=== PATIENT | female | born 1970 | race Caucasian/White ===

== ENCOUNTER 2024-05-02 18:54 | Observation (INO) | payer BC, SELFPAY ==
[2024-05-02] VITALS (10 sets, daily range): BP systolic 88–121; BP diastolic 42–71; PULSE 62–89; RESP 13–19; TEMP 36.7–37; O2SAT 83–100; BMI 27.2; BMI 26.9
--- NOTE | 2024-05-02 20:20 | HMH.EDGENADL ---
Discharge Plan Disposition Patient Disposition: Admitted Condition: Good Clinical Impressions Clinical Impression: Blood pressure alteration Discharge ED Provider: Julieta Abdul General Adult HPI General Chief complaint: Weakness Stated complaint: Feet and fingers numb,feels faint,LBP Time Seen by Provider: 05/02/24 19:42 Mode of Arrival: Wheelchair Source of Information: Patient Limitations: No Limitations Description of Symptoms (Recalled from ER Triage Doc. by RN): Pt states she has a known 3.9cm aortic aneurysm and her provider has been working on trying to control her BP. Pt believes the BP meds is to high of a dose, and it is causing her BP to bottom out. Normally her SBP is in the 180s. pt states she was + for the flu 2 weeks ago History of Present Illness HPI narrative: This patient is a 53-year-old female with a history of aortic aneurysm, hypertension presenting to the emergency department for evaluation with concern for low blood pressure, chest tightness, upper back tightness, tingling in her fingertips and feet that been going on for about 3 days. She states that she just does not feel right. She notes that she had the flu about a week and a half ago and felt she got dehydrated with this. She also had her bisoprolol that she takes for impulse control and HTN. She notes that her blood pressure previously had been running high. She states that she has not been feeling well at all and feels lightheaded when she goes to stand up. She cut her bisoprolol back already from 20 mg back down to 10, but she still is not feeling right. Related Data Home Medications ?Medication ?Instructions ?Recorded ?Confirmed buspirone 7.5 mg tablet 7.5 mg PO DAILY 05/02/24 05/02/24 doxepin 3 mg tablet 6 mg PO DAILY 05/02/24 05/02/24 nebivolol 20 mg tablet 20 mg PO DAILY 05/02/24 05/02/24 ubrogepant 100 mg tablet (Ubrelvy) See Rx Instructions .Route .COMPLEX 05/02/24 05/02/24 valsartan 320 mg tablet 320 mg PO DAILY 05/02/24 05/02/24 venlafaxine 225 mg tablet,extended 225 mg PO DAILY 05/02/24 05/02/24 release 24 hr Allergies Allergy/AdvReac Type Severity Reaction Status Date / Time codeine Allergy Intermediate Hives Verified 05/02/24 20:44 ofloxacin (From Floxin) AdvReac Mild Migraine Verified 05/02/24 20:44 [facility] Disclaimer: The information contained in this section may have been updated after the patient was seen, as this information can be updated by other users. Social History Smoking Status: Never smoker alcohol intake: never current occupational status: employed Travel in the last 8 weeks: None ROS Obtained: Yes All systems reviewed & no additional complaints except as documented Physical Exam General General appearance: alert and in no apparent distress Head Head exam: atraumatic and normocephalic Eye Eye exam: Present normal appearance, PERRL and EOMI ENT ENT exam: Present normal exam, normal oropharynx, mucous membranes moist and normal external ear exam Neck Neck exam: Present normal inspection, full ROM and trachea midline; Absent tenderness Chest Chest inspection: Present normal inspection and symmetric chest wall rise; Absent tenderness Respiratory Respiratory exam: Present normal lung sounds bilaterally; Absent respiratory distress, wheezes, stridor or accessory muscle use Cardiovascular Cardiovascular exam: Present regular rate and normal rhythm Abdominal Exam Abdominal exam: Present soft; Absent distention, tenderness or guarding Extremities Exam Extremities exam: Present normal inspection, full ROM and normal capillary refill; Absent tenderness or edema Back Exam Back exam: Present normal inspection and full ROM; Absent tenderness Neurological Exam Neurological exam: Present alert, oriented X3, CN II-XII intact and normal gait; Absent motor sensory deficit Psychiatric Psychiatric exam: Present normal affect and normal mood Skin Skin exam: Present warm and dry Medical Decision Making Medical Records Medical records reviewed: Yes I reviewed the patient's medical records. Screening: Per USPSTF and CDC recommendations, given the prevalence of disease in our region, it is our hospital?s policy to screen for HIV and viral Hepatitis for all patients aged 18 and over and those with ongoing risk factors. Terry Inquiry Pt receiving controlled substance: No Vital Signs: 05/02/24 19:01 05/02/24 19:23 05/02/24 19:30 Temperature 98.6 F Temperature Source Tympanic Pulse Rate 77 77 Pulse Rate [Orthostatic Lying] Pulse Rate [Orthostatic Sitting] Pulse Rate [Orthostatic Standing] Pulse Rate [Right] 79 Respiratory Rate 18 19 17 Blood Pressure 103/68 L 113/67 Blood Pressure [Orthostatic Lying Left Arm] Blood Pressure [Orthostatic Sitting] Blood Pressure [Orthostatic Standing] Blood Pressure [Right Arm] 107/42 L Blood Pressure Mean [Right Arm] 63 Blood Pressure Source [Right Arm] Manual Cuff/ Auscultation Blood Pressure Position Blood Pressure Position [Right Arm] Sitting 02 Sat by Pulse Oximetry 100 99 99 Oxygen Delivery Method Room Air 05/02/24 20:00 05/02/24 20:17 05/02/24 20:30 Temperature Temperature Source Pulse Rate 72 62 Pulse Rate [Orthostatic Lying] 68 Pulse Rate [Orthostatic Sitting] 76 Pulse Rate [Orthostatic Standing] 84 Pulse Rate [Right] Respiratory Rate 13 14 Blood Pressure 105/68 L 109/64 L Blood Pressure [Orthostatic Lying Left Arm] 94/55 L Blood Pressure [Orthostatic Sitting] 103/59 L Blood Pressure [Orthostatic Standing] 88/64 L Blood Pressure [Right Arm] Blood Pressure Mean [Right Arm] Blood Pressure Source [Right Arm] Blood Pressure Position Blood Pressure Position [Right Arm] 02 Sat by Pulse Oximetry 100 83 L Oxygen Delivery Method 05/02/24 20:37 05/02/24 21:31 05/02/24 21:31 Temperature Temperature Source Pulse Rate 69 67 Pulse Rate [Orthostatic Lying] Pulse Rate [Orthostatic Sitting] Pulse Rate [Orthostatic Standing] Pulse Rate [Right] Respiratory Rate 15 14 13 Blood Pressure 103/59 L 111/49 L 111/49 L Blood Pressure [Orthostatic Lying Left Arm] Blood Pressure [Orthostatic Sitting] Blood Pressure [Orthostatic Standing] Blood Pressure [Right Arm] Blood Pressure Mean [Right Arm] Blood Pressure Source [Right Arm] Blood Pressure Position Blood Pressure Position [Right Arm] 02 Sat by Pulse Oximetry 92 L 99 Oxygen Delivery Method Room Air 05/02/24 22:14 05/02/24 22:15 Temperature 98.0 F 98.1 F Temperature Source Oral Pulse Rate 89 Pulse Rate [Orthostatic Lying] Pulse Rate [Orthostatic Sitting] Pulse Rate [Orthostatic Standing] Pulse Rate [Right] 83 Respiratory Rate 16 14 Blood Pressure 113/68 Blood Pressure [Orthostatic Lying Left Arm] Blood Pressure [Orthostatic Sitting] Blood Pressure [Orthostatic Standing] Blood Pressure [Right Arm] 121/71 Blood Pressure Mean [Right Arm] 87 Blood Pressure Source [Right Arm] Automatic Cuff Blood Pressure Position Sitting Blood Pressure Position [Right Arm] 02 Sat by Pulse Oximetry 98 Oxygen Delivery Method Room Air Room Air Lab Data Lab results reviewed: Yes I reviewed the patient's lab results. Lab Results 05/02/24 19:24: WBC 15.8 H, RBC 5.40, Hgb 15.9, Hct 48.1 H, MCV 89.1, MCH 29.4, MCHC 33.1, RDW 15.5, Plt Count 420, MPV 10.7 H, Neut % (Auto) 64.7, Lymph % (Auto) 24.7, [place] % (Auto) 9.1, Eos % (Auto) 0.6, Baso % (Auto) 0.5, Neut # (Auto) 10.2 H, Lymph # (Auto) 3.9, [place] # (Auto) 1.4 H, Eos # (Auto) 0.1, Baso # (Auto) 0.1, Total Counted 100, Neutrophils % (Manual) 61, Lymphocytes % (Manual) 34, Monocytes % (Manual) 3, Basophils % (Manual) 2.0 H, Platelet Estimate Normal, RBC Morphology Normal, Sodium 135 L, Potassium 3.6, Chloride 103, Carbon Dioxide 26, Anion Gap 9.6, BUN 26 H, Creatinine 0.80, Estimated Creat Clear 109, Estimated GFR 75, Est GFR ( Amer) 90, Glucose 103 H, Calcium 8.6, Phosphorus 3.4, Magnesium 1.8, Total Bilirubin 0.4, AST 38 H, ALT 27, Alkaline Phosphatase 70, Troponin I < 0.01, Total Protein 5.9 L, Albumin 3.5, Globulin 2.4, Albumin/Globulin Ratio 1.5 05/02/24 19:24 05/02/24 19:24 Orders (Tests/Meds): ED MEDICATIONS Generic Name Dose Route Start Last Admin Trade Name Freq PRN Reason Stop Dose Admin Acetaminophen 650 mg 05/02/24 22:09 Acetaminophen 325mg Tab PO 06/01/24 22:08 Q4HP PRN Fever or Mild Pain (1-3) Lactated Ringer's 1,000 mls @ 50 mls/hr 05/02/24 22:15 05/02/24 22:57 Lactated Ringer's 1000 Ml Bag IV 06/01/24 22:14 50 mls/hr .Q20H ZOE Administration Ondansetron HCl 4 mg 05/02/24 22:09 Ondansetron 4mg/2ml Vial IV 06/01/24 22:08 Q8HP PRN Nausea Discontinued Medications Generic Name Dose Route Start Last Admin Trade Name Freq PRN Reason Stop Dose Admin Lactated Ringer's 1,000 mls @ 999 mls/hr 05/02/24 20:24 05/02/24 20:47 Lactated Ringer's 1000 Ml Bag IV 05/02/24 21:24 999 mls/hr .Q1H1M ONE Administration Iopamidol 70 ml 05/02/24 20:55 05/02/24 20:56 Iopamidol-370 (76%);100ml Bottle IV 05/02/24 20:56 70 ml ONCE ONE Administration Sodium Chloride 50 ml 05/02/24 20:55 05/02/24 20:56 0.9 % Sodium Chloride 50 Ml Vial IV 05/02/24 20:56 50 ml ONCE ONE Administration Sodium Chloride 10 ml 05/02/24 20:55 05/02/24 20:56 Sodium Chloride 0.9% 10ml Syr (Rad Only) IV 05/02/24 20:56 10 ml ONCE ONE Administration ORDERS Category Date Time Status CT angio chest - dissection Stat Cat Scan 05/02/24 20:22 Completed Basic Metabolic Panel [facility] Lab 05/03/24 06:00 Ordered Basic Metabolic Panel AMLAB Lab 05/04/24 06:00 Ordered Basic Metabolic Panel [facility] Lab 05/05/24 06:00 Ordered Basic Metabolic Panel AMLAB Lab 05/06/24 06:00 Ordered Basic Metabolic Panel AMLAB Lab 05/07/24 06:00 Ordered CBC w/Auto Diff [Complete Blood Count Auto Diff] Stat Lab 05/02/24 19:24 Completed CMP [Comprehensive Metabolic Panel] Stat Lab 05/02/24 19:24 Completed Complete Blood Count Auto Diff AML[facility] Lab 05/03/24 06:00 Ordered Complete Blood Count Auto Diff AMLAB Lab 05/04/24 06:00 Ordered Complete Blood Count Auto Diff AMLAB Lab 05/05/24 06:00 Ordered Complete Blood Count Auto Diff AMLAB Lab 05/06/24 06:00 Ordered Complete Blood Count Auto Diff AMLAB Lab 05/07/24 06:00 Ordered MAG [Magnesium] Stat Lab 05/02/24 19:24 Completed Magnesium AMLAB Lab 05/03/24 06:00 Ordered PHOS [Phosphorous] Stat Lab 05/02/24 19:24 Completed TSH [Thyroid Stimulating Hormone] AMLAB Lab 05/03/24 06:00 Ordered TSH [Thyroid Stimulating Hormone] Stat Lab 05/02/24 22:41 Completed Trop I [Troponin I] Stat Lab 05/02/24 19:24 Completed Troponin I Q3H Lab 05/02/24 22:41 Completed Troponin I Q3H Lab 05/03/24 02:30 Ordered Vitamin B12 Routine Lab 05/03/24 04:00 Ordered ECG Data Tracing #1: I reviewed this ECG and interpreted as documented below: Sinus rhythm with frequent PVCs. Significant ST changes without acute STEMI. No prior EKG for comparison. ECG initial impression date: 05/02/24 ECG initial impression time: 20:44 Medical Decision Narrative: In summary, this patient is a 53-year-old female presenting to the Emergency Department for evaluation of lightheadedness, presyncope, chest tightness, upper back tightness, tingling in her fingertips and feet. Differential diagnoses considered include but are not limited to aortic dissection, orthostatic hypotension, electrolyte derangements, dehydration, ACS, dysrhythmia. Ruling out the most morbid conditions drove assessment. It should be noted patient's history includes aortic aneurysm and hypertension which are reportedly not at goal therapy. This complicates all aspects of care by increasing patient's risk for morbidity. On exam, the patient is lying in bed in no acute distress. She has reassuring vital signs on cardiac telemetry, though pressure is slightly soft with systolic in the low 100s. Heart rate is in the 70s. She has symmetric pulses bilaterally and reassuring cardiopulmonary exam without appreciable murmurs. Workup included CBC, CMP, troponin, TSH, T4, magnesium, phosphorus, EKG, CTA of the chest. Patient was given a bolus of IV fluids for symptomatic improvement. I independently interpreted CT scan prior to the radiologist read and noted no obvious aortic dissection. Please see their read for final interpretation. Labs were obtained that demonstrated leukocytosis, which is nonspecific. She has a reassuring chemistry with very mildly elevated AST, mildly elevated BUN. Troponin negative.. Labs and CT scan are reassuring, and vitals are reassuring on cardiac telemetry. She does have orthostatic hypotension. EKG obtained is concerning because she has ST changes without STEMI. She also has for very frequent PVCs. I shared EKG and discussed the case with Dr. Montelongo with cardiology who recommended admission for echo and further evaluation and management. I then discussed the case with the hospitalist to admitted the patient in stable condition. Patient updated and understands plan of care. Critical Care Critical Care Time Critical Care Time: No
--- NOTE | 2024-05-02 20:22 | CT_ITS ---
PROCEDURE INFORMATION: Exam: CTA Chest With Contrast Exam date and time: 05/02/2024 8:53 PM Age: 53 years old Clinical indication: Other: Aortic aneurysm, presyncope TECHNIQUE: Imaging protocol: Computed tomographic angiography of the chest with contrast. Exam focused on the arteries. 3D rendering (Not supervised by radiologist): MIP and/or 3D reconstructed images were created by the technologist. Radiation optimization: All CT scans at this facility use at least one of these dose optimization techniques: automated exposure control; mA and/or kV adjustment per patient size (includes targeted exams where dose is matched to clinical indication); or iterative reconstruction. Contrast material: ISOVUE 370; Contrast volume: 70 ml; Contrast route: INTRAVENOUS (IV); COMPARISON: No relevant prior studies available. FINDINGS: Pulmonary arteries: Normal. No pulmonary emboli. Aorta: Unremarkable. No aortic aneurysm. No aortic dissection. Lungs: Dependent bilateral lung base opacities favor atelectasis. Pleural spaces: Unremarkable. No pneumothorax. No pleural effusion. Heart: Unremarkable. No cardiomegaly. No pericardial effusion. Lymph nodes: Unremarkable. No enlarged lymph nodes. Stomach: Postsurgical changes compatible with gastric sleeve bariatric surgery with chain suture at the greater curvature. Bones/joints: Unremarkable. No acute fracture. Soft tissues: Bilateral breast implants appear intact. IMPRESSION: No acute findings.
[2024-05-02 20:24] LABS: Albumin Level 3.5 g/dl (3.5-5.0); Chloride 103 mmol/L (98-107)
[2024-05-02 20:25] LABS: Potassium 3.6 mmoL/L (3.5-5.1); Sodium 135 mmol/L (136-145)
[2024-05-02 20:26] LABS: Basophils # 0.1 K/mm3 (0-0.2); Basophils % 0.5 % (0.1-2.0); Eosinophils # 0.1 K/mm3 (0.0-0.4); Eosinophils % 0.6 % (0.1-12.0); Hematocrit 48.1 % (37.0-47.0); Hemoglobin 15.9 g/dL (12.2-16.2); Lymphocytes # 3.9 K/mm3 (0.7-4.5); Lymphocytes % 24.7 % (10-50); Mean Corpuscular HGB Conc 33.1 g/dL (31.8-35.4); Mean Corpuscular Hemoglobin 29.4 pg (27.0-31.2); Mean Corpuscular Volume 89.1 fl (81-99); Mean Platelet Volume 10.7 fl (7.4-10.4); Monocytes # 1.4 K/mm3 (0.1-1.0); Monocytes % 9.1 % (1.7-9.3); Neutrophils # 10.2 K/mm3 (1.8-7.8); Neutrophils % 64.7 % (37.0-80.0); Platelet Count 420 K/mm3 (142-424); Red Cell Distribution Width 15.5 % (11.5-17.5); White Blood Count 15.8 K/mm3 (4.8-10.8)
[2024-05-02 20:27] LABS: Alanine Aminotransferase 27 U/L (12-78); Albumin/Globulin Ratio 1.5 (1.1-1.8); Anion Gap 9.6 mEq/L (5-15); Aspartate Amino Transferase 38 U/L (14-36); Blood Urea Nitrogen 26 mg/dl (7-17); Carbon Dioxide 26 mmol/L (22.0-30.0); Creatinine Clearance Estimated 109 mL/min (50-200); Estimated Glomerular Filt Rate 75 ml/min (>60); GFR (African American) 90 ML/MIN (>60); Globulin 2.4 g/dL (1.3-3.2); Total Protein,Serum 5.9 g/dl (6.3-8.2)
[2024-05-02 20:28] LABS: Alkaline Phosphatase 70 U/L (38-126); Bilirubin,Total 0.4 mg/dl (0.2-1.3); Calcium 8.6 mg/dl (8.4-10.2); Glucose 103 mg/dl (74-100); MANUAL DIFFERENTIAL MANUAL DIFFERENTIAL (MANUAL DIFF); Magnesium 1.8 mg/dl (1.6-2.3); Phosphorous 3.4 mg/dl (2.5-4.5)
--- NOTE | 2024-05-02 20:34 | ECG_ITS ---
APPROVED REPORT Exam: Resting ECG HR:74 bpm ECG Measurements Heart Rate 74 AXES UT 148 P 19 QRSd 89 QRS 15 QT 417 T 6 QTc 444 Conclusion SINUS RHYTHM WITH FREQUENT VENTRICULAR PREMATURE COMPLEXES LOW QRS VOLTAGE IN PRECORDIAL LEADS [QRS DEFLECTION < 1.0 mV IN CHEST LEADS] PATTERN CONSISTENT WITH PULMONARY DISEASE MODERATE ST DEPRESSION [0.05+ mV ST DEPRESSION] ABNORMAL ECG UNCONFIRMED REPORT Electronically signed by : KATARINA BROWN, 05/02/2024 23:55:28
[2024-05-02 20:45] LABS: Troponin I < 0.01 ng/ml (0.00-0.034)
[2024-05-02] MEDS: LACTATED RINGERS 1000ML 1,000 ML 999 ML IV (20:47)
[2024-05-02] MEDS: SODIUM CHLORIDE 0.9% 10ML SYR (RAD ONLY) 10 ML IV (20:56)
[2024-05-02] MEDS: IOPAMIDOL-370 (76%);100ML BOTTLE 70 ML IV (20:56)
[2024-05-02] MEDS: 0.9 % SODIUM CHLORIDE 50 ML VIAL IV (20:56)
[2024-05-02 21:25] LABS: Lymphocytes % 34 % (10-50); Monocytes % 3 % (2-9); Neutrophils % 61 % (42-76); Platelet Estimate Normal; RBC Morphology Normal; Total Cells Counted 100
--- NOTE | 2024-05-02 22:05 | PC.NURSE ---
provider at the bedside updating pt on POC
--- NOTE | 2024-05-02 22:23 | PC.NURSE ---
Patient arrived to floor via stretcher from ED at 22:21.
[2024-05-02] MEDS: LACTATED RINGERS 1000ML 1,000 ML 50 ML IV (22:57)
[2024-05-02 23:20] LABS: Troponin I < 0.01 ng/ml (0.00-0.034)
[2024-05-02 23:35] LABS: Thyroid Stimulating Hormone 1.55 uIU/mL (0.465-4.68)
[2024-05-03] VITALS: BP 100/89; PULSE 84; RESP 17; TEMP 36.6; O2SAT 95
--- NOTE | 2024-05-03 01:01 | P.HP_ITS ---
History of Present Illness *Admission Date: 05/03/24 *History of present illness: The patient is a 53-year-old female with a history of aortic aneurysm and hypertension presenting to the emergency department with concerns of low blood pressure, chest tightness, upper back tightness, and tingling in her fingertips and feet for the past three days. She describes a general sense of not feeling right and reports lightheadedness, particularly when standing. She states that she had influenza approximately a week and a half ago and felt significantly dehydrated during that time. She also notes that her blood pressure medications have been adjusted recently, as she had been taking bisoprolol for both impulse control and hypertension, but her blood pressure had been running high. In response, she had increased her bisoprolol dose to 20 mg but began experiencing worsening symptoms, prompting her to reduce the dose back to 10 mg, though she continues to feel unwell. On arrival, the patient was lying in bed in no acute distress with systolic blood pressure in the low 100s but otherwise reassuring vitals on cardiac telemetry. Physical examination showed symmetric pulses bilaterally and a normal cardiopulmonary exam without appreciable murmurs. EKG demonstrated sinus rhythm with frequent premature ventricular contractions and significant ST changes without acute STEMI. No prior EKG was available for comparison. Given her history of aortic aneurysm and hypertension, aortic dissection was considered, and a CTA of the chest was performed. Independent review of the scan showed no evidence of dissection. Laboratory evaluation was notable for leukocytosis with a WBC of 15.8 and neutrophilic predominance. Hemoglobin and hematocrit were elevated at 15.9 and 48.1, respectively. Platelet count was elevated at 420. Chemistry panel showed mild hyponatremia with sodium of 135 and mild hypokalemia with potassium of 3.6. BUN was mildly elevated at 26, with normal creatinine. Liver function tests were largely unremarkable except for a mild AST elevation at 38. Troponin was negative. Given her frequent PVCs and ST changes, cardiology was consulted. After reviewing the case, cardiology recommended admission for further evaluation with echocardiogram and telemetry monitoring. The hospitalist was consulted and accepted the patient for admission in stable condition for continued evaluation and management. The patient was updated on the plan of care and expressed understanding. [facility] Disclaimer: The information contained in this section may have been updated after the patient was seen, as this information can be updated by other users. Medical History Abdominal aortic aneurysm Anxiety Hypertension Social History Smoking Status: Never smoker alcohol intake: never current occupational status: employed Travel in the last 8 weeks: None Have you lived/traveled outside US in past 30 days?: No Contact w/someone who lives/traveled outside US past 30 days?: No Exposure to someone with infectious disease in past 14 days?: No Do you have a fever (greater than 100.4 F or 38 C)?: No Have you tested positive for COVID-19: No Exposed to someone with COVID-19 in past 14 days?: No Do you have a sore throat?: No Do you have a cough?: No Do you have any weakness?: No Do you have any diarrhea?: No Are you experiencing any unusual bleeding?: No Do you have any muscle aches/pain?: No Do you have any abdominal pain?: No Are you experiencing loss of taste or smell?: No Review of Systems Review of Systems Review of systems (narrative): 13 point review of systems negative outside HPI Meds Home Medications and Allergies Home Medications ?Medication ?Instructions ?Recorded ?Confirmed ?Type buspirone 7.5 mg tablet 7.5 mg PO BID 05/02/24 05/03/24 History doxepin 3 mg tablet 6 mg PO HS 05/02/24 05/03/24 History nebivolol 20 mg tablet 20 mg PO DAILY 05/02/24 05/02/24 History ubrogepant 100 mg tablet (Ubrelvy) 100 mg PO DAILYP PRN Migraine 05/02/24 05/03/24 History Headache valsartan 320 mg tablet 320 mg PO DAILY 05/02/24 05/02/24 History venlafaxine 225 mg tablet,extended 225 mg PO DAILY 05/02/24 05/02/24 History release 24 hr New Prescriptions to Start Prescriptions: Allergies Allergy/AdvReac Type Severity Reaction Status Date / Time codeine Allergy Intermediate Hives Verified 05/02/24 20:44 ofloxacin (From Floxin) AdvReac Mild Migraine Verified 05/02/24 20:44 Exam Data for Last 24 hours Vital signs and Labs for Last 24 Hours: Temp Pulse Resp BP Pulse Ox O2 Del Method 98.1 F 89 14 113/68 98 Room Air 05/02/24 22:15 05/02/24 22:15 05/02/24 22:15 05/02/24 22:15 05/02/24 22:14 05/02/24 22:15 Laboratory Results - last 24 hr 05/02/24 19:24: WBC 15.8 H, RBC 5.40, Hgb 15.9, Hct 48.1 H, MCV 89.1, MCH 29.4, MCHC 33.1, RDW 15.5, Plt Count 420, MPV 10.7 H, Neut % (Auto) 64.7, Lymph % (Auto) 24.7, [place]field % (Auto) 9.1, Eos % (Auto) 0.6, Baso % (Auto) 0.5, Neut # (Auto) 10.2 H, Lymph # (Auto) 3.9, Whitfield # (Auto) 1.4 H, Eos # (Auto) 0.1, Baso # (Auto) 0.1, Total Counted 100, Neutrophils % (Manual) 61, Lymphocytes % (Manual) 34, Monocytes % (Manual) 3, Basophils % (Manual) 2.0 H, Platelet Estimate Normal, RBC Morphology Normal, Sodium 135 L, Potassium 3.6, Chloride 103, Carbon Dioxide 26, Anion Gap 9.6, BUN 26 H, Creatinine 0.80, Estimated Creat Clear 109, Estimated GFR 75, Est GFR ( Amer) 90, Glucose 103 H, Calcium 8.6, Phosphorus 3.4, Magnesium 1.8, Total Bilirubin 0.4, AST 38 H, ALT 27, Alkaline Phosphatase 70, Troponin I < 0.01, Total Protein 5.9 L, Albumin 3.5, Globulin 2.4, Albumin/Globulin Ratio 1.5 05/02/24 22:41: Troponin I < 0.01, TSH 1.55 I & O for Last 24 hours: Intake & Output 04/30/24 05/01/24 05/02/24 05/03/24 23:59 23:59 23:59 23:59 Weight 85.4 kg Constitutional Constitutional: no acute distress *Routine HEENT Exam Head: Present normocephalic Eye: Present EOMI and PERRL ENT: Present mucous membranes moist *Routine Neck Exam Neck: Present supple; Absent lymphadenopathy *Routine Respiratory Exam Respiratory: Present CTA bilaterally *Routine Cardiovascular Exam Cardiovascular: Present RRR *Routine Abdominal Exam Abdominal: Present soft and normoactive bowel sounds; Absent tenderness *Routine Rectal Exam Rectal:: deferred *Routine Genitalia Exam Genitalia:: deferred *Routine Extremities Exam Extremities: Absent cyanosis, clubbing or edema *Routine Skin Exam Skin: Present warm; Absent rash *Routine Neurological Exam Neurological: Present alert and oriented X3 Assessment and Plan *Assessment and plan (1) Blood pressure alteration: Status: Acute Category: Medical Code(s): R68.89 - Other general symptoms and signs (2) Acute electrocardiogram changes: Status: Acute Category: Medical Code(s): R94.31 - Abnormal electrocardiogram [ECG] [EKG] (3) Hypertension: Status: Acute Category: Medical Code(s): I10 - Essential (primary) hypertension (4) Anxiety: Status: Acute Category: Medical Code(s): F41.9 - Anxiety disorder, unspecified Plan Lightheadedness, presyncope, chest tightness, upper back tightness, and tingling in fingertips and feet * Symptoms have been ongoing for three days and associated with orthostatic symptoms, particularly upon standing. * No reported syncope, palpitations, or acute neurologic deficits. * Differential includes orthostatic hypotension, cardiac ischemia, dysrhythmia, electrolyte derangements, dehydration, and post-viral autonomic dysfunction. * EKG shows sinus rhythm with frequent PVCs and ST changes without STEMI, which is concerning. * CTA chest independently reviewed and shows no evidence of aortic dissection. * Troponin negative, reducing concern for acute coronary syndrome. * Leukocytosis (WBC 15.8) with neutrophilia, mild BUN elevation (26), and mild AST elevation (38). * Given persistent symptoms and abnormal EKG findings, cardiology was consulted and recommended admission for telemetry monitoring and echocardiogram. * Request routine labs, TSH and B12 Recent influenza with dehydration * Patient reports recent recovery from influenza approximately 1.5 weeks ago and states she felt dehydrated during that illness. * Likely contributed to orthostatic symptoms and possible volume depletion. * BUN mildly elevated (26) with normal creatinine, suggestive of mild dehydration. * IV fluid bolus given for volume repletion. Hypertension with recent medication adjustments * Patient reports that her blood pressure had been running high, leading to an increase in bisoprolol to 20 mg daily, which she later reduced to 10 mg daily due to worsening symptoms. * Current blood pressure is slightly soft, with systolic readings in the low 100s. * Recent medication changes may have contributed to symptoms of orthostasis and presyncope. * Blood pressure to be monitored closely throughout admission. * Cardiology to assess for further adjustments in antihypertensive regimen. Frequent PVCs with ST changes without STEMI * EKG concerning for frequent PVCs and ST changes. * No prior EKG available for comparison. * Cardiology consulted; recommended admission for further evaluation with echocardiogram and telemetry monitoring. Mild hyponatremia (135) and mild hypokalemia (3.6) * Possibly related to recent dehydration and medication effects. * Monitor electrolytes throughout admission. * Consider potassium supplementation if levels continue to trend down. Disposition * Admitted to hospital medicine in stable condition per cardiology recommendation for further cardiac evaluation, telemetry monitoring, and echocardiogram. * Patient was updated on the plan of care and expressed understanding. Rounded on patient after nurse practitioner. Personally examined and interviewed patient. Agree with exam findings and care plan as documented.
[2024-05-03 03:24] LABS: Troponin I < 0.01 ng/ml (0.00-0.034)
[2024-05-03 04:00] VITALS: BMI 26.7
--- NOTE | 2024-05-03 05:08 | PC.NURSE ---
no issues t/o the night. pt slept a couple of hrs. just now gave pt a cup of hot tea. still complaints of numbness and tingling in hand and feet, pedal pulses +1 in bilat feet. no needs at this time.
[2024-05-03 05:16] VITALS: PULSE 67
[2024-05-03 05:19] LABS: Vitamin B12 976 pg/mL (239-931)
[2024-05-03 07:16] LABS: Basophils # 0.1 K/mm3 (0-0.2); Basophils % 0.6 % (0.1-2.0); Eosinophils # 0.2 K/mm3 (0.0-0.4); Eosinophils % 1.6 % (0.1-12.0); Hematocrit 42.7 % (37.0-47.0); Lymphocytes % 26.7 % (10-50); Mean Corpuscular Hemoglobin 29.3 pg (27.0-31.2); Mean Corpuscular Volume 88.8 fl (81-99); Monocytes # 1.2 K/mm3 (0.1-1.0); Monocytes % 10.7 % (1.7-9.3); Neutrophils # 6.8 K/mm3 (1.8-7.8); Neutrophils % 60.1 % (37.0-80.0); Platelet Count 325 K/mm3 (142-424); Red Blood Count 4.81 M/mm3 (4.20-5.40); Red Cell Distribution Width 15.7 % (11.5-17.5); White Blood Count 11.4 K/mm3 (4.8-10.8)
[2024-05-03 07:17] LABS: Chloride 107 mmol/L (98-107); Potassium 3.4 mmoL/L (3.5-5.1); Sodium 138 mmol/L (136-145)
[2024-05-03 07:20] LABS: Anion Gap 7.4 mEq/L (5-15); Blood Urea Nitrogen 21 mg/dl (7-17); Calcium 7.9 mg/dl (8.4-10.2); Carbon Dioxide 27 mmol/L (22.0-30.0); Creatinine Clearance Estimated 123 mL/min (50-200); Estimated Glomerular Filt Rate 87 ml/min (>60); GFR (African American) 106 ML/MIN (>60); Glucose 86 mg/dl (74-100); Magnesium 1.8 mg/dl (1.6-2.3)
[2024-05-03 07:48] LABS: Thyroid Stimulating Hormone 2.37 uIU/mL (0.465-4.68)
[2024-05-03 07:55] LABS: Hemoglobin 14.1 g/dL (12.2-16.2)
[2024-05-03 08:00] VITALS: BP 99/45; PULSE 70; PULSE 77; RESP 16; TEMP 36.9; O2SAT 98
--- NOTE | 2024-05-03 08:39 | CA_ITS ---
APPROVED REPORT EXAM: Comprehensive 2D, Doppler, and color-flow Echocardiogram Security Strategist: Damaris Harvey, RT(R) Ht: 5 ft 10 in Wt: 185lbs BSA: 2.02 BP: 113/68 mmHg Indications: Abn EKG, ex smoker, palpitations, fatigue, HTN, SOB, AA, chest tightness 2D Dimensions Left Atrium 2.66 cm F: 2.7 - 3.8 LA Volume 63.10 mL LVOT 1.90 cm (M/F) 1.5-2.5 LA Volume Index 31.24 mL/m2 (M/F) 16-34 EF AP4 53.10 % GL Strain -11.6 % M-Mode Dimensions RVDd 1.85 cm (0.9-2.6) LVDd 4.02 cm (3.5-5.7) Ao Diam 3.83 cm (2.0-3.7) LVDs 2.82 cm (3.5-5.7) IVSd 1.65 cm (0.6-1.1) PWd 1.05 cm (0.6-1.1) EF (Teich) 57.50% FS 29.90% EDV (Teich) 70.80 mL ESV (Teich) 30.10 mL LV Diastology E Decel Time 253 (160-240 msec) E/A Ratio 0.8 MED E' 12.6 (>= 7 cm/sec) E'/MED E' Ratio 5.24 (<= 14) LAT E' 14.4 (>= 10 cm/sec) E/LAT E' Ratio 4.58 (<= 14) Aortic Valve AI PHT 1042.00 ms Mitral Valve MV E Max Ramon. 66.0 (40-130 cm/s) MV A Velocity 80.0 (40-130 cm/s) E/A Ratio 0.83 MV Decel. Time 253 (160-240 ms) Left Ventricle The left ventricle is normal size. The left ventricular systolic function is normal. The left ventricular ejection fraction is within the normal range. There is increased LV wall thickness. The septum is asynchronous. No regional wall motion abnormalities are noted. Transmitral Doppler flow pattern suggests impaired LV relaxation. LVEF is 55%. Right Ventricle The right ventricle is normal size. The right ventricular systolic function is normal. Atria Left atrium is mildly dilated. Right atrium is mildly dilated. The interatrial septum is not well-visualized. Aortic Valve The aortic valve is mildly thickened. There is no aortic valvular stenosis. Mild aortic regurgitation. Mitral Valve The mitral valve leaflets are mildly thickened. No evidence of mitral valve stenosis. Trace mitral regurgitation. Tricuspid Valve The tricuspid valve leaflets are thin and pliable. Trace tricuspid regurgitation. There is insufficient TR jet to estimate RVSP. Pulmonic Valve The pulmonary valve is normal in structure. Trace pulmonic regurgitation. Great Vessels The aortic root is normal in size. The ascending aorta is mildly dilated, measuring 3.9 cm in diameter. IVC is normal in size and collapses >50% with inspiration. Pericardium There is no pericardial effusion. Other Information Study Quality: Fair Conclusion Normal biventricular systolic function. Mild biatrial dilation. Mild AI. The ascending aorta is mildly dilated, measuring 3.9 cm in diameter. Correlation with new or recent CTA chest is suggested. Electronically signed by : Wendy Prasad MD 05/05/2024 23:57:29
[2024-05-03 08:41] LABS: HIV Combo NEGATIVE (Negative)
--- NOTE | 2024-05-03 08:44 | HMH.PHAINT1 ---
Pharmacy Intervention Comments: MEDICATION RECONCILIATION COMPLETED ON PATIENT USING EXTERNAL FILL HISTORY FROM PHARMACY. -YARY CEDILLO, DERREKD
[2024-05-03 08:49] LABS: Hepatitis C Ab Qual. W/ RFX NEGATIVE (Negative)
[2024-05-03] MEDS: MAGNESIUM SULFATE IN WATER 2 GM/50 ML PIGGYBACK IV (09:39)
[2024-05-03] MEDS: BUSPIRONE HCL 5 MG TABLET 7.5 MG PO (09:39)
[2024-05-03] MEDS: VENLAFAXINE XR 75MG CAPSULE 225 MG PO (09:39)
[2024-05-03] MEDS: POTASSIUM CHLORIDE 20MEQ TAB 40 MEQ PO ×2 (09:42→13:03)
--- NOTE | 2024-05-03 11:15 | EXP.CARD.CON ---
History of Present Illness History of Present Illness Consult date: 05/03/24 Requesting physician: Alesk Valverde Chief complaint: weakness, hypotension History of present illness: 53-year-old white female with a history of small AAA followed by sports anchor. She also takes valsartan 320 and nebivolol 20 mg daily for blood pressure control. Patient states she had flu approximately 1.5 weeks ago and got dehydrated and ate very little food. Her blood pressure which she states typically runs 180s was down to 100 systolic. This continued for 3 days so she presented to the emergency room for evaluation. On arrival here she was noted to have frequent PVCs with ongoing symptoms so she was kept overnight for observation. Her EKG shows sinus rhythm with bigeminal PVCs, serial troponins are normal, BP here 80s to 90s systolic, max of 107. Overnight she was given fluid resuscitation and this morning she reports feeling better overall although PVCs continue. She denies palpitations. She does admit some mild exertional chest discomfort for the past several weeks. She has never had a stress test before. [facility] Disclaimer: The information contained in this section may have been updated after the patient was seen, as this information can be updated by other users. Medical History Abdominal aortic aneurysm Anxiety Hypertension Social History Smoking Status: Never smoker alcohol intake: never current occupational status: employed Travel in the last 8 weeks: None Have you lived/traveled outside [place] in past 30 days?: No Contact w/someone who lives/traveled outside US past 30 days?: No Exposure to someone with infectious disease in past 14 days?: No Do you have a fever (greater than 100.4 F or 38 C)?: No Have you tested positive for COVID-19: No Exposed to someone with COVID-19 in past 14 days?: No Do you have a sore throat?: No Do you have a cough?: No Do you have any weakness?: No Do you have any diarrhea?: No Are you experiencing any unusual bleeding?: No Do you have any muscle aches/pain?: No Do you have any abdominal pain?: No Are you experiencing loss of taste or smell?: No Review of Systems Constitutional Constitutional: Reports fatigue and Reports weakness Eyes Eyes: Denies loss of vision ENT Ears, Nose, Mouth, and Throat: Denies hearing loss and Denies vertigo *Cardiovascular Cardiovascular: Denies chest pain, Denies dyspnea and Denies syncope *Respiratory Respiratory: Denies cough and Denies dyspnea *Gastrointestinal Gastrointestinal: Denies change in stool character, Denies nausea and Denies vomiting *Musculoskeletal Musculoskeletal: Denies muscle weakness Integumentary/Breasts Skin/Breast: Denies changing lesions *Neurologic Neurologic: Denies loss of vision, Denies syncope, Denies vertigo and Reports weakness Endocrine Endocrine: Reports fatigue Exam Data for Last 24 hours Vital signs and Labs for Last 24 Hours: Temp Pulse Resp BP Pulse Ox O2 Del Method 98.4 F 77 16 99/45 L 98 Room Air 05/03/24 08:00 05/03/24 08:00 05/03/24 08:00 05/03/24 08:00 05/03/24 08:00 05/03/24 09:00 Laboratory Results - last 24 hr 05/02/24 19:24: WBC 15.8 H, RBC 5.40, Hgb 15.9, Hct 48.1 H, MCV 89.1, MCH 29.4, MCHC 33.1, RDW 15.5, Plt Count 420, MPV 10.7 H, Neut % (Auto) 64.7, Lymph % (Auto) 24.7, Keith % (Auto) 9.1, Eos % (Auto) 0.6, Baso % (Auto) 0.5, Neut # (Auto) 10.2 H, Lymph # (Auto) 3.9, Keith # (Auto) 1.4 H, Eos # (Auto) 0.1, Baso # (Auto) 0.1, Total Counted 100, Neutrophils % (Manual) 61, Lymphocytes % (Manual) 34, Monocytes % (Manual) 3, Basophils % (Manual) 2.0 H, Platelet Estimate Normal, RBC Morphology Normal, Sodium 135 L, Potassium 3.6, Chloride 103, Carbon Dioxide 26, Anion Gap 9.6, BUN 26 H, Creatinine 0.80, Estimated Creat Clear 109, Estimated GFR 75, Est GFR ( Amer) 90, Glucose 103 H, Calcium 8.6, Phosphorus 3.4, Magnesium 1.8, Total Bilirubin 0.4, AST 38 H, ALT 27, Alkaline Phosphatase 70, Troponin I < 0.01, Total Protein 5.9 L, Albumin 3.5, Globulin 2.4, Albumin/Globulin Ratio 1.5 05/02/24 22:41: Troponin I < 0.01, TSH 1.55 05/03/24 02:33: Troponin I < 0.01, Vitamin B12 976 H, HCV Ab [place] w/Rflx PCR Qn Negative, HIV Ag/Ab Combo Qual Negative 05/03/24 06:42: WBC 11.4 H D, RBC 4.81, Hgb 14.1 D, Hct 42.7, MCV 88.8, MCH 29.3, MCHC 33.0, RDW 15.7, Plt Count 325, MPV 10.0, Neut % (Auto) 60.1, Lymph % (Auto) 26.7, Keith % (Auto) 10.7 H, Eos % (Auto) 1.6, Baso % (Auto) 0.6, Neut # (Auto) 6.8, Lymph # (Auto) 3.0, Keith # (Auto) 1.2 H, Eos # (Auto) 0.2, Baso # (Auto) 0.1, Sodium 138, Potassium 3.4 L, Chloride 107, Carbon Dioxide 27, Anion Gap 7.4, BUN 21 H, Creatinine 0.70, Estimated Creat Clear 123, Estimated GFR 87, Est GFR ( Amer) 106, Glucose 86, Calcium 7.9 L, Magnesium 1.8, TSH 2.37 D I & O for Last 24 hours: Intake & Output 04/30/24 05/01/24 05/02/24 05/03/24 23:59 23:59 23:59 23:59 Intake Total 228 / 228 Output Total 0 / 0 Balance 228 / 228 Weight 188 lb 4.396 oz 186 lb 11.704 oz Constitutional Constitutional: no acute distress and cooperative *Routine HEENT Exam Eye: Present PERRL *Routine Respiratory Exam Respiratory: Present CTA bilaterally; Absent accessory muscle use, wheezes or crackles *Routine Cardiovascular Exam Cardiovascular: Present RRR, Normal S1, Normal S2 and irregular rhythm; Absent murmur, gallop or rubs *Routine Abdominal Exam Abdominal: Present soft; Absent tenderness *Routine Extremities Exam Extremities: Present pulses intact; Absent cyanosis or edema *Routine Skin Exam Skin: Present intact; Absent erythema or wounds *Routine Neurological Exam Neurological: Present alert and oriented X3 Routine Psychiatric Exam Psychiatric: Present cooperative Meds Home Medications and Allergies Home Medications ?Medication ?Instructions ?Recorded ?Confirmed ?Type buspirone 7.5 mg tablet 7.5 mg PO BID 05/02/24 05/03/24 History doxepin 3 mg tablet 6 mg PO HS 05/02/24 05/03/24 History nebivolol 20 mg tablet 20 mg PO DAILY 05/02/24 05/02/24 History ubrogepant 100 mg tablet (Ubrelvy) 100 mg PO DAILYP PRN Migraine 05/02/24 05/03/24 History Headache valsartan 320 mg tablet 320 mg PO DAILY 05/02/24 05/02/24 History venlafaxine 225 mg tablet,extended 225 mg PO DAILY 05/02/24 05/02/24 History release 24 hr New Prescriptions to Start Prescriptions: Allergies Allergy/AdvReac Type Severity Reaction Status Date / Time codeine Allergy Intermediate Hives Verified 05/02/24 20:44 ofloxacin (From Floxin) AdvReac Mild Migraine Verified 05/02/24 20:44 Assessment and Plan *Assessment and plan (1) PVC (premature ventricular contraction): Status: Acute Category: Medical Code(s): I49.3 - Ventricular premature depolarization (2) Hypotension: Status: Acute Category: Medical Code(s): I95.9 - Hypotension, unspecified (3) Angina pectoris: Status: Acute Category: Medical Code(s): I20.9 - Angina pectoris, unspecified Plan Bigeminal PVCs - asymptomatic - holding her home dose BB due to hypotension following flu/dehydration - give Mg 2gm IV x1 - check 2D ECHO Angina Pectoris - CCS = 1-2, stable angina for 3-4 weeks - serial Trop normal - no ischemic changes on EKG - BB on hold due to hypotension - Add ASA and PRN Ntg - 2D ECHO pending - consider outpatient ischemic workup with her Outsole Cementer promptly after DC Hypotension - due to recent flu - dehydrated, I ate nothing for 3 days - improving with fluid resuscitation Htn with AAA - 3.9 ascending aortic aneurysm followed by Cardiology in [place] - BP meds currently on hold due to acute illness 05/03: CV stable. Further plans pending ECHO results. ADDENDUM: ECHO shows normal Bi-V function, mild AAA, mild AI. No WMA. She is acceptable to DC home. Resume BB when BP allows. Add ASA and PRN SL Ntg at DC due to her c/o stable angina. She needs to see her Outsole Cementer within 1 week for heart monitor (to assess PVCs) and stress test to evaluate her chest pain. If she cannot get in to see her Dr we will be glad to see her this week in the Cardiology clinic.
[2024-05-03 12:00] VITALS: BP 94/66; PULSE 70; RESP 18; TEMP 36.4; O2SAT 100
--- NOTE | 2024-05-03 12:20 | P.DS_ITS ---
General Admission date:: 05/02/24 Discharge date: 05/03/24 HPI HPI HPI: The patient is a 53-year-old female with a history of aortic aneurysm and hypertension presenting to the emergency department with concerns of low blood pressure, chest tightness, upper back tightness, and tingling in her fingertips and feet for the past three days. She describes a general sense of not feeling right and reports lightheadedness, particularly when standing. She states that she had influenza approximately a week and a half ago and felt significantly dehydrated during that time. She also notes that her blood pressure medications have been adjusted recently, as she had been taking bisoprolol for both impulse control and hypertension, but her blood pressure had been running high. In response, she had increased her bisoprolol dose to 20 mg but began experiencing worsening symptoms, prompting her to reduce the dose back to 10 mg, though she continues to feel unwell. On arrival, the patient was lying in bed in no acute distress with systolic blood pressure in the low 100s but otherwise reassuring vitals on cardiac telemetry. Physical examination showed symmetric pulses bilaterally and a normal cardiopulmonary exam without appreciable murmurs. EKG demonstrated sinus rhythm with frequent premature ventricular contractions and significant ST changes without acute STEMI. No prior EKG was available for comparison. Given her history of aortic aneurysm and hypertension, aortic dissection was considered, and a CTA of the chest was performed. Independent review of the scan showed no evidence of dissection. Laboratory evaluation was notable for leukocytosis with a WBC of 15.8 and neutrophilic predominance. Hemoglobin and hematocrit were elevated at 15.9 and 48.1, respectively. Platelet count was elevated at 420. Chemistry panel showed mild hyponatremia with sodium of 135 and mild hypokalemia with potassium of 3.6. BUN was mildly elevated at 26, with normal creatinine. Liver function tests were largely unremarkable except for a mild AST elevation at 38. Troponin was negative. Given her frequent PVCs and ST changes, cardiology was consulted. After reviewing the case, cardiology recommended admission for further evaluation with echocardiogram and telemetry monitoring. The hospitalist was consulted and accepted the patient for admission in stable condition for continued evaluation and management. The patient was updated on the plan of care and expressed understanding. Hospital Course Hospital Course Hospital Course: 53-year-old female who present with 3 to 4 days of lightheadedness, presyncope, chest discomfort. Recent flu infection. Has had poor p.o. intake. EKG showing frequent PVCs but no STEMI on arrival. Decision made to admit for further workup. Cardiology evaluated. Patient hydrated overnight with improvement in blood pressure and clinical status. CTA of the chest was obtained that showed no evidence of aortic dissection or PEs. Echo was obtained. Medication adjustments made. Patient deemed stable to discharge home with further management as an outpatient. Problems addressed as follows: Bigeminal PVCs Angina pectoris Hypotension -Patient having asymptomatic PVCs. Echo was obtained that shows normal BiV function. Mild AAA. Mild AI. No wall motion abnormalities. Acceptable to discharge home. Recommend resuming her beta valerio for. Will resume nebivolol 20 mg daily. At this time we will hold valsartan as her blood pressure this still little soft at 95/66. Responded well to fluid resuscitation and electrolyte replacement. No need for intervention at this moment. Will initiate aspirin and as needed nitroglycerin. Needs close follow-up with her acid retort operator in [place] for further evaluation and possible outpatient ischemic workup. -Hypotension related to dehydration and continuing to take her blood pressure medications. Resolving at this time. Encourage aggressive p.o. fluid hydration. Htn with AAA - 3.9 ascending aortic aneurysm followed by Cardiology in [place]. BP meds currently on hold due to acute illness Continue home buspirone 7.5 mg twice daily, doxepin 6 mg nightly, and venlafaxine 225 mg daily for anxiety. Stable to discharge home with further management as an outpatient. Kidney function normal BUN 21, creatinine 0.7. Potassium 3.4, magnesium 1.8. Troponins negative. TSH normal at 1.55. Exam Data for Last 24 hours Vital signs and Labs for Last 24 Hours: Temp Pulse Resp BP Pulse Ox O2 Del Method 98.4 F 77 16 99/45 L 98 Room Air 05/03/24 08:00 05/03/24 08:00 05/03/24 08:00 05/03/24 08:00 05/03/24 08:00 05/03/24 09:00 Laboratory Results - last 24 hr 05/02/24 19:24: WBC 15.8 H, RBC 5.40, Hgb 15.9, Hct 48.1 H, MCV 89.1, MCH 29.4, MCHC 33.1, RDW 15.5, Plt Count 420, MPV 10.7 H, Neut % (Auto) 64.7, Lymph % (Auto) 24.7, [place] % (Auto) 9.1, Eos % (Auto) 0.6, Baso % (Auto) 0.5, Neut # (Auto) 10.2 H, Lymph # (Auto) 3.9, [place] # (Auto) 1.4 H, Eos # (Auto) 0.1, Baso # (Auto) 0.1, Total Counted 100, Neutrophils % (Manual) 61, Lymphocytes % (Manual) 34, Monocytes % (Manual) 3, Basophils % (Manual) 2.0 H, Platelet Estimate Normal, RBC Morphology Normal, Sodium 135 L, Potassium 3.6, Chloride 103, Carbon Dioxide 26, Anion Gap 9.6, BUN 26 H, Creatinine 0.80, Estimated Creat Clear 109, Estimated GFR 75, Est GFR ( Amer) 90, Glucose 103 H, Calcium 8.6, Phosphorus 3.4, Magnesium 1.8, Total Bilirubin 0.4, AST 38 H, ALT 27, Alkaline Phosphatase 70, Troponin I < 0.01, Total Protein 5.9 L, Albumin 3.5, Globulin 2.4, Albumin/Globulin Ratio 1.5 05/02/24 22:41: Troponin I < 0.01, TSH 1.55 05/03/24 02:33: Troponin I < 0.01, Vitamin B12 976 H, HCV Ab [place] w/Rflx PCR Qn Negative, HIV Ag/Ab Combo Qual Negative 05/03/24 06:42: WBC 11.4 H D, RBC 4.81, Hgb 14.1 D, Hct 42.7, MCV 88.8, MCH 29.3, MCHC 33.0, RDW 15.7, Plt Count 325, MPV 10.0, Neut % (Auto) 60.1, Lymph % (Auto) 26.7, [place]bs % (Auto) 10.7 H, Eos % (Auto) 1.6, Baso % (Auto) 0.6, Neut # (Auto) 6.8, Lymph # (Auto) 3.0, [place] # (Auto) 1.2 H, Eos # (Auto) 0.2, Baso # (Auto) 0.1, Sodium 138, Potassium 3.4 L, Chloride 107, Carbon Dioxide 27, Anion Gap 7.4, BUN 21 H, Creatinine 0.70, Estimated Creat Clear 123, Estimated GFR 87, Est GFR ( Amer) 106, Glucose 86, Calcium 7.9 L, Magnesium 1.8, TSH 2.37 D I & O for Last 24 hours: Intake & Output 04/30/24 05/01/24 05/02/24 05/03/24 23:59 23:59 23:59 23:59 Intake Total 498 / 498 Output Total 0 / 0 Balance 498 / 498 Weight 85.4 kg 84.7 kg Constitutional Constitutional: no acute distress, average body habitus and cooperative *Routine HEENT Exam Head: Present normocephalic and atraumatic Eye: Present EOMI and PERRL ENT: Present mucous membranes moist *Routine Neck Exam Neck: Present supple Routine Chest/Breast/Axilla Exam Chest wall: Absent tenderness *Routine Respiratory Exam Respiratory: Present CTA bilaterally; Absent accessory muscle use, rhonchi, wheezes or crackles *Routine Cardiovascular Exam Cardiovascular: Present RRR, Normal S1, Normal S2 and irregular rhythm; Absent murmur, gallop or rubs *Routine Abdominal Exam Abdominal: Present soft; Absent tenderness *Routine Rectal Exam Patient deferred: visual exam *Routine Exam Patient deferred: external exam *Routine Extremities Exam Extremities: Present pulses intact; Absent cyanosis or edema *Routine Skin Exam Skin: Present intact; Absent erythema or wounds *Routine Neurological Exam Neurological: Present alert, oriented X3 and moving all extremities; Absent a ltered mental status Routine Psychiatric Exam Psychiatric: Present cooperative Results Data Completed and Pending Labs on day of discharge: Labs from last 24 hours 05/03/24 05/03/24 05/02/24 06:42 02:33 22:41 WBC 11.4 H D RBC 4.81 Hgb 14.1 D Hct 42.7 MCV 88.8 MCH 29.3 MCHC 33.0 RDW 15.7 Plt Count 325 MPV 10.0 Neut % (Auto) 60.1 Lymph % (Auto) 26.7 [place]ombs % (Auto) 10.7 H Eos % (Auto) 1.6 Baso % (Auto) 0.6 Neut # (Auto) 6.8 Lymph # (Auto) 3.0 [place]ombs # (Auto) 1.2 H Eos # (Auto) 0.2 Baso # (Auto) 0.1 Total Counted Neutrophils % (Manual) Lymphocytes % (Manual) Monocytes % (Manual) Basophils % (Manual) Platelet Estimate RBC Morphology Sodium 138 Potassium 3.4 L Chloride 107 Carbon Dioxide 27 Anion Gap 7.4 BUN 21 H Creatinine 0.70 Estimated Creat Clear 123 Estimated GFR 87 Est GFR ( Amer) 106 Glucose 86 Calcium 7.9 L Phosphorus Magnesium 1.8 Total Bilirubin AST ALT Alkaline Phosphatase Troponin I < 0.01 < 0.01 Total Protein Albumin Globulin Albumin/Globulin Ratio Vitamin B12 976 H TSH 2.37 D 1.55 HCV Ab [place] w/Rflx PCR Qn Negative HIV Ag/Ab Combo Qual Negative 05/02/24 19:24 WBC 15.8 H RBC 5.40 Hgb 15.9 Hct 48.1 H MCV 89.1 MCH 29.4 MCHC 33.1 RDW 15.5 Plt Count 420 MPV 10.7 H Neut % (Auto) 64.7 Lymph % (Auto) 24.7 [place]ombs % (Auto) 9.1 Eos % (Auto) 0.6 Baso % (Auto) 0.5 Neut # (Auto) 10.2 H Lymph # (Auto) 3.9 [place]bs # (Auto) 1.4 H Eos # (Auto) 0.1 Baso # (Auto) 0.1 Total Counted 100 Neutrophils % (Manual) 61 Lymphocytes % (Manual) 34 Monocytes % (Manual) 3 Basophils % (Manual) 2.0 H Platelet Estimate Normal RBC Morphology Normal Sodium 135 L Potassium 3.6 Chloride 103 Carbon Dioxide 26 Anion Gap 9.6 BUN 26 H Creatinine 0.80 Estimated Creat Clear 109 Estimated GFR 75 Est GFR ( Amer) 90 Glucose 103 H Calcium 8.6 Phosphorus 3.4 Magnesium 1.8 Total Bilirubin 0.4 AST 38 H ALT 27 Alkaline Phosphatase 70 Troponin I < 0.01 Total Protein 5.9 L Albumin 3.5 Globulin 2.4 Albumin/Globulin Ratio 1.5 Vitamin B12 TSH HCV Ab [place] w/Rflx PCR Qn HIV Ag/Ab Combo Qual DS: Diagnosis Discharge Diagnosis (1) PVC (premature ventricular contraction): Status: Acute Code(s): I49.3 - Ventricular premature depolarization (2) Hypotension: Status: Acute Code(s): I95.9 - Hypotension, unspecified (3) Angina pectoris: Status: Acute Code(s): I20.9 - Angina pectoris, unspecified Meds Home Medications and Allergies Home Medications ?Medication ?Instructions ?Recorded ?Confirmed ?Type buspirone 7.5 mg tablet 7.5 mg PO BID 05/02/24 05/03/24 History doxepin 3 mg tablet 6 mg PO HS 05/02/24 05/03/24 History nebivolol 20 mg tablet 20 mg PO DAILY 05/02/24 05/02/24 History ubrogepant 100 mg tablet (Ubrelvy) 100 mg PO DAILYP PRN Migraine 05/02/24 05/03/24 History Headache valsartan 320 mg tablet 320 mg PO DAILY 05/02/24 05/02/24 History venlafaxine 225 mg tablet,extended 225 mg PO DAILY 05/02/24 05/02/24 History release 24 hr nitroglycerin 0.4 mg sublingual 0.4 mg sublingual Q5M PRN chest 05/04/24 Rx tablet pain #30 tabs New Prescriptions to Start Prescriptions: nitroglycerin Aleks Valverde Allergies Allergy/AdvReac Type Severity Reaction Status Date / Time codeine Allergy Intermediate Hives Verified 05/02/24 20:44 ofloxacin (From Floxin) AdvReac Mild Migraine Verified 05/02/24 20:44 Discharge Plan Disposition Patient Disposition: Home, Self-Care Condition: Good Follow up Plan Follow up with: Babita Livingston MD [Primary Care Provider] - 05/13/24 1:30 pm Kelli Lyles MD [Referring] - 05/10/24 2:30 pm (in [facility] office) Prescriptions/Medication Reconciliation: New nitroglycerin 0.4 mg tablet, sublingual 0.4 mg sublingual Q5M PRN (Reason: chest pain) Qty: 30 0RF Rx Instructions: do not exceed 3 doses per episode Continued buspirone 7.5 mg tablet 7.5 mg PO BID Patient Comments: TAKE 1 TABLET BY MOUTH TWICE DAILY venlafaxine 225 mg tablet extended release 24hr 225 mg PO DAILY Patient Comments: TAKE 1 TABLET BY MOUTH ONCE DAILY FOR 90 DAYS nebivolol 20 mg tablet 20 mg PO DAILY doxepin 3 mg tablet 6 mg PO HS Ubrelvy 100 mg tablet 100 mg PO DAILYP PRN (Reason: Migraine Headache) Patient Comments: TAKE 1 TABLET BY MOUTH ONCE DAILY NEEDED FOR 30 DAYS Held valsartan 320 mg tablet 320 mg PO DAILY Hold Instructions: pending follow-up with your acid retort operator and resolution of dehydration Patient Comments: TAKE 1 TABLET BY MOUTH ONCE DAILY Problem Reconciliation Problems Reviewed?: Yes Patient Discharge Instructions ACTIVITY: Continue current activity DIET: continue same diet Patient Instructions: DI for Muscle Weakness Print Language: [place] Providers Primary Care Provider: Babita Livingston Admit Provider: Aleks Valverde Attending Provider: Aleks Valverde
--- NOTE | 2024-05-06 11:09 | SW/DCPLANNER ---
Spoke with patient on the phone. Patient stated that the weekend was a little rough but seems to be doing better today. Patient stated that she is aware of her upcoming appointments. Patient stated that she was able to get her new medicine picked up. Patient stated that she has no concerns or questions at this time. Rishabh Yan
== END 2024-05-03 14:40 | disposition home or self-care (01) ==
LOC: ER 19:16 → 2ND 22:22
PROVIDERS: Nurse Practitioner Family; Admitting Provider Internal Medicine Adolescent Medicine; Emergency Provider Emergency Medicine; PCP Family Medicine; Visit Provider Internal Medicine Adolescent Medicine
DX: I10 Essential (primary) hypertension (principal); R94.31 Abnormal electrocardiogram [ECG] [EKG]; F41.9 Anxiety disorder, unspecified; I49.3 Ventricular premature depolarization; I95.9 Hypotension, unspecified; I20.9 Angina pectoris, unspecified; E87.1 Hypo-osmolality and hyponatremia; I71.40 Abdominal aortic aneurysm, without rupture, unspecified; Z79.899 Other long term (current) drug therapy
CPT/HCPCS: 36415; 71275; 80048; 80053; 82607; 83735; 84100; 84443; 84484; 85007; 85025; 85027; 86803; 87389; 93005; 93306; 99221; 99285; G0378; J3475; J7120; Q9967